=== PATIENT | male | born 1990 | race Caucasian/White ===

== ENCOUNTER 2016-06-28 03:48 | Inpatient (IN) | payer OTHER ==
--- NOTE | ~2016-06-28 | PN ---
Unit #: [id number] #: [id number] Patient: JASVIR EDWARD [id number] [facility] [address] [place] [address] [id number] I MR#: [id number] NAME: JASVIR EDWARD ROOM: [facility] Age: 25 Sex: M Admission Date: 06/28/2016 : 1990 Attending Physician: Petar Bingham M.D. Admitting Physician: Petar Bingham M.D. Primary Care Physician: Jess Doctor Not In System [facility] PROGRESS NOTES DATE OF SERVICE 06/29/2016 DISCUSSION Mr. Jasvir Edward is a 25-year-old male. The patient interviewed, chart reviewed. Obtained information from nursing staff. The patient reports that he is still having problem with the anxiety and restlessness. The patient reported that he was taking a high dosage of Neurontin at home. The patient still having problem with the anxiety, nervousness, and mood lability. The patient isolative, guarded, flat affect. Complete Review of Systems: Unremarkable. MENTAL STATUS EXAMINATION General Appearance: The patient dressed casually. Attention span, concentration: Fair. Oriented in place and person. Mood and affect: Sad, dysphoric. Speech: Monotone. Thought process: Collins. The patient denied any thoughts of harming self or others or any psychotic symptom, but having above-mentioned symptom. DIAGNOSES 1. Mood disorder not otherwise specified. 2. Amphetamine use disorder, severe. 3. Opioid use disorder, severe. ASSESSMENT/PLAN Advised to continue with current medication and therapeutic protocol. Advised Neurontin 300 mg 4 times a day and discontinue p.r.n. Neurontin. If needed, consider further adjustment of medication. Dictated by... Shiana Rivera/lima TD: 07/01/2016 07:07 JOB #: [id number] Unit #: [id number] #: [id number] Patient: JASVIR EDWARD PROGRESS NOTES Page 1 of 1 X Petar Bingham MD PROGRESS NOTE
--- NOTE | ~2016-06-28 | DS ---
Unit #: [id number] #: [id number] Patient: GUEVARA EDWARD [id number] [facility] [address] [place] [address] [id number] I MR#: [id number] NAME: GUEVARA EDWARD ROOM: [facility] Age: 25 Sex: M Admission Date: 06/28/2016 : 1990 Discharge Date: 07/01/2016 Attending Physician: Petar Bingham M.D. DISCHARGE SUMMARY REASON FOR ADMISISON Depression. DIAGNOSTIC STUDIES LABORATORY RESULTS: Urine drug screen positive for amphetamine and marijuana. HOSPITAL COURSE The patient was admitted to inpatient unit on 06/28/2016 and discharged on 07/01/2016. The patient was treated on the inpatient unit with group therapy, individual therapy, medication management, chemical dependency group, and expressive therapy. The patient responded well with the above modalities of treatment. Subsequently, the patient was discharged with a plan to follow up in outpatient program. DISCHARGE MEDICATIONS Seroquel 200 mg at bedtime for mood stabilization. I advised to discontinue Neurontin. DISCHARGE DIAGNOSES Psychiatric: 1. Amphetamine use disorder, severe, F15.20. 2. Opioid use disorder, severe, F11.20. 3. Mood disorder, not otherwise specified, F32.9. Secondary diagnosis: Deferred. Medical diagnosis: None. Stressors: Psychosocial stressors. DISCHARGE INSTRUCTIONS The patient is to follow up in outpatient clinic as per director social. CONDITION ON DISCHARGE The patient was pleasant and cooperative. Denied any psychotic symptom or any suicidal ideation. PROGNOSIS Guarded. DIET AND ACTIVITY As tolerated. Unit #: [id number] #: [id number] Patient: GUEVARA EDWARD Dictated by... Shaina Rivera/arely TD: 07/02/2016 21:19 JOB #: [id number] DISCHARGE SUMMARY Page 1 of 1 X Petar Bingham MD DISCHARGE SUMMARY
--- NOTE | ~2016-06-28 | HP ---
Unit #: [id number] #: [id number] Patient: JASVIR EDWARD [id number] [facility] [address] [place] [address] [id number] I MR#: [id number] NAME: JASVIR EDWARD ROOM: 83 Age: 25 Sex: M Admission Date: 06/28/2016 : 1990 Attending Physician: Petar Bingham M.D. Admitting Physician: Petar Bingham M.D. Primary Care Physician: Jess Doctor Not In System HISTORY AND PHYSICAL HISTORY OF PRESENT ILLNESS Jasvir is a 25 year old admitted to [facility] because of his poly illicit substance abuse. PAST MEDICAL HISTORY 1. Long history of polysubstance abuse to include IV meth, Suboxone and spice. 2. History of withdrawal seizures. PAST SURGICAL HISTORY Nothing reported ALLERGIES No known drug allergies. SOCIAL HISTORY Smokes two packs per day. Denies alcohol and admits to a long history of illicit substance abuse to include IV methamphetamine. FAMILY HISTORY Medically noncontributory. REVIEW OF SYSTEMS CONSTITUTIONAL: No fever or chills. HEENT: Denies any sore throat, ear pain or runny nose. CARDIOVASCULAR: Denies chest pain, irregular heart rhythm or palpitations. CHEST: Denies shortness of breath or cough. No hemoptysis. GASTROINTESTINAL: Denies nausea, vomiting, diarrhea or chronic constipation. ENDOCRINE: Denies history of increased thirst or urination. No recent significant weight loss or gain. GENITOURINARY: Denies dysuria, frequency, or hematuria. SKIN: Denies any rashes. HEMATOLOGIC: Denies history of increased bleeding or bruising. MUSCULOSKELETAL: Denies any hot, swollen joints. No generalized muscle pain. NEUROLOGIC: Denies problems with vision or speech. No frequent, severe headaches. No numbness, tingling or weakness in any extremities. Denies loss of bladder or bowel control. CURRENT MEDICATIONS 1. Detox protocol Unit #: [id number] #: [id number] Patient: JASVIR EDWARD 2. Seroquel 200 mg q.h.s. PHYSICAL EXAMINATION GENERAL: Alert, well-nourished, in no apparent distress. VITAL SIGNS: Blood pressure 116/72, heart rate 88, respirations 16, temperature 98.6. WEIGHT: 168 pounds. HEIGHT: 5'11". SKIN: Warm and dry without rash or lesion. HEENT: Normocephalic. TMs not viewed. Oral and nasal passages clear. Conjunctivae clear. Pupils equal, round and reactive to light and accommodation. Extraocular movements intact. NECK: Supple without lymphadenopathy or thyromegaly. HEART: Regular rate and rhythm without murmur. LUNGS: Clear. ABDOMEN: Soft, nontender. : Not done. EXTREMITIES: No evidence of cyanosis, clubbing or edema. Moves all extremities without focal deficit. NEUROLOGICAL: Grossly within normal limits. Cranial Nerves: II: Visual ko are intact. III, IV AND : Extraocular movements are intact. Pupils are equal, round and reactive to light. V: Facial sensation is grossly normal. VII: Facial movements and expression are normal. VIII: Auditory acuity grossly intact. IX, X: Uvula is midline. Phonation is normal. XI: Patient shrugs shoulders and turns head normally. XII: Tongue protrudes in the midline. Sensory and Motor Function: Sensory and motor sensation is grossly normal. Motor: moves all extremities well. Coordination: Gait is normal. Deep Tendon Reflexes: Intact. IMPRESSION Psychiatric admission RECOMMENDATIONS PSYCHIATRIC: Per psychiatrist. MEDICAL: I see no contraindications to participating in facility's activities. MEDICAL PROGNOSIS Good. MEDICAL CONDITION Stable. Dictated by... Mamie CelesteAKymberly-Iron. for Shaina Valerio/vinita TD: 06/28/2016 23:36 JOB #: [id number] Unit #: [id number] #: [id number] Patient: JASVIR EDWARD HISTORY AND PHYSICAL Page 1 of 1 X Priya Ohara PA X HISTORY AND PHYSICAL
--- NOTE | ~2016-06-28 | PN ---
Unit #: [id number] #: [id number] Patient: GUEVARA EDWARD [id number] [facility] [address] [place] [address] [id number] I MR#: [id number] NAME: GUEVARA EDWARD ROOM: 83 Age: 25 Sex: M Admission Date: 06/28/2016 : 1990 Attending Physician: Petar Bingham M.D. Admitting Physician: Shaina Rivera NOTES This patient has been quiet and keeping to himself. He has not been threatening, but he is calculating and watching everything that is going on. He admits he was threatening to shoot himself and harm others. He said that is still on his mind. He really cannot piece together why he is so angry. There may be something very important to know about this boy that has not been revealed yet. We will continue to assess him. His Lamictal was increased to 15, 25. He is also on Intuniv 1 mg a day and Strattera 40 mg a day. We will continue to work with him and his family. Dictated by... Rafiq Jorgensen M.D. SHAHNAZ/arely TD: 06/29/2016 02:23 JOB #: [id number] [facility] NOTES Page 1 of 1 X Rafiq Jorgensen MD X PROGRESS NOTE
--- NOTE | ~2016-06-28 | PN ---
Unit #: [id number] #: [id number] Patient: JASVIR EDWARD [id number] [facility] [address] [place] [address] [id number] MR#: [id number] NAME: JASVIR EDWARD ROOM: [facility] Age: 25 Sex: M Admission Date: 06/28/2016 : 1990 Attending Physician: Petar Bingham M.D. Admitting Physician: Petar Bingham M.D. Primary Care Physician: Generic Doctor Not In System [facility] PROGRESS NOTES DATE 06/30/2016 DISCUSSION Jasvir is a 25-year-old male seen on 06/30/2016. Patient interviewed. Chart reviewed. Obtained information from nursing staff. Patient was able to maintain safe behavior. Compliant, cooperative. Mood sad, dysphoric, flat affect, guarded. Complete review of system unremarkable. MENTAL STATUS EXAMINATION General appearance, patient dressed casually. Attention span, concentration fair. Oriented in place and person. Mood and affect sad, dysphoric. Speech monotone. Thought process goal-directed. Patient denied any thoughts of harming self or others but guarded. Recent and remote memory poor. Insight and judgement poor. DIAGNOSIS Mood disorder NOS. ASSESSMENT/PLAN Advised to continue with current medication and therapeutic protocol. Will monitor response to medication and make further adjustment of medication if needed. Dictated by... Shaina Rivera/ector TD: 07/01/2016 17:42 JOB #: [id number] Unit #: [id number] #: [id number] Patient: JASVIR EDWARD PROGRESS NOTES Page 1 of 1 X Petar Bingham MD PROGRESS NOTE
--- NOTE | ~2016-06-28 | PA ---
Unit #: [id number] #: [id number] Patient: GUEVARA EDWARD [id number] [facility] [address] [place] [address] [id number] I MR#: [id number] NAME: GUEVARA EDWARD ROOM: [facility] Age: 25 Sex: M Admission Date: 06/28/2016 : 1990 Date of Assessment: Attending Physician: Petar Bingham M.D. Admitting Physician: Petar Bingham M.D. Primary Care Physician: Generic Doctor Not In System PSYCHIATRIC ASSESSMENT INFORMANTS The patient reliability, fair informant and chart reliability, good. CHIEF COMPLAINT Amphetamine abuse and opioid abuse. HISTORY OF PRESENT ILLNESS Mr. Tay is a 25-year-old male, seen on with the above-mentioned complaint. The patient has a history of previous inpatient treatment at [facility]. The patient presented with using 2 g of IV meth daily. The patient reported using 8 g of Suboxone daily, last use yesterday. The patient reports one-fourth of spice daily. Reports withdrawal symptoms, cold, hot sweats, runny nose, muscle cramps, and restlessness. Denied any suicidal or homicidal ideation. Denied any psychotic symptom at this time. The patient reported tobacco use, age of onset 6; marijuana, age of onset 24; opioid, age of onset 23; and amphetamine, age of onset 17. The patient reported history of IV drug use and history of withdrawal symptoms. No history of any HIV, hepatitis, or any blackouts. Currently, reporting abdominal cramping, muscle cramping, and restlessness. PAST PSYCHIATRIC HISTORY Remarkable for history of outpatient treatment as mentioned above. FAMILY HISTORY AND SOCIAL HISTORY The patient has poor support system. No history of any abuse. MEDICAL HISTORY Unremarkable for any chronic medical illness. Musculoskeletal; muscle strength and tone, no atrophy or abnormal movement. Gait normal. MEDICATION HISTORY None. ALLERGIES No known drug allergies. SUBSTANCE ABUSE HISTORY Please see above. REVIEW OF SYSTEMS HEENT: Eyes, clear. Ears, nose, mouth, and throat; clear. CARDIOVASCULAR: Unremarkable. RESPIRATORY: Unremarkable. Unit #: [id number] #: [id number] Patient: GUEVARA EDWARD GI: Unremarkable. : Unremarkable. SKIN: Unremarkable. LYMPH NODE: Unremarkable. NEUROLOGIC: Unremarkable. ENDOCRINE: Unremarkable. HEMATOLOGIC: Unremarkable. ALLERGIC/IMMUNOLOGIC: Unremarkable. MUSCULOSKELETAL: Muscle strength and tone, no atrophy or abnormal movement. Gait normal. MENTAL STATUS EXAMINATION CONSTITUTIONAL: Measurement of vital signs; temperature 98.4, heart rate 88, respiratory rate 22, and blood pressure 116/73. Height 5 feet 11 inches and weight 168 pounds. GENERAL APPEARANCE: The patient's hygiene and grooming, fair. The patient did not show any facial deformity. MUSCULOSKELETAL: Please see above. PSYCHIATRIC EXAMINATION Description of speech; regular rate, normal volume, normal articulation, coherent, and spontaneous. Description of thought process, goal directed. Description of association, intact. Description of abnormal psychotic thinking; the patient denied any hallucinations or delusions, but mood lability and substance abuse. Description of the patient's judgment: Concerning everyday activity, poor. Social situation, poor. Concerning psychiatric condition, poor. Complete mental status examination; oriented in time, place, and person. Recent and remote memory, fair. Attention span and concentration, fair. Language, able to name object and repeat phrases. Fund of knowledge, aware of current event and passive vocabulary intact. Mood and affect, sad and dysphoric. Insight and judgment, fair to poor. ASSETS AND LIABILITIES Assets, the patient is articulate and able to take care of his ADL. Liability, history of substance abuse and depression. ADMITTING DIAGNOSES Psychiatric: Amphetamine use disorder, severe, F15.20; opioid use disorder, severe, F11.20; and mood disorder, not otherwise specified, F32.9. Secondary diagnosis: Deferred. Medical diagnosis: None. Stressors: Psychosocial stressors. PSYCHIATRIC PLAN AND TREATMENT GOAL AND DISCHARGE PLAN 1. Advised to admit the patient on the inpatient unit. Provide safe, supportive, and structured environment. 2. Ordered labs; CBC, CMP, UA, and UDS. 3. Precaution for self-harm, detox monitoring, and detox protocol. 4. The patient to attend all the programing, group therapy, individual therapy, and medication management. TREATMENT GOAL Unit #: [id number] #: [id number] Patient: GUEVARA EDWARD To attain euthymic mood, gain insight into his problem, and learn coping skills. DISCHARGE PLAN Plan to stabilize the patient and consider followup in outpatient program. ESTIMATED LENGTH OF STAY 3 to 5 days. Dictated by... Petar Bingham M.D. RENY/arely TD: 06/28/2016 17:04 JOB #: [id number] PSYCHIATRIC ASSESSMENT Page 1 of 1 X Petar Bingham MD PSYCHIATRIC ASSESSMENT
[2016-06-29 09:32] LABS: URINE APPEARANCE CLEAR; URINE BILIRUBIN NEG (NEG); URINE BLOOD NEG (NEG); URINE COLOR YELLOW; URINE GLUCOSE NEG (NEG); URINE KETONE NEG (NEG); URINE LEUKOCYTE ESTERASE NEG (NEG); URINE NITRATE NEG (NEG); URINE PH 6.5 (5-8); URINE PROTEIN NEG (NEG); URINE SPECIFIC GRAVITY 1.026 (1.003-1.035)
[2016-06-29 10:02] LABS: AMPHETAMINE POS (NEG); BARBITURATES NEG (NEG); BENZODIAZEPINES NEG (NEG); COCAINE NEG (NEG); MARIJUANA POS (NEG); OPIATES NEG (NEG); TRICYCLIC ANTIDEPRESSANTS POS (NEG); U METHADONE NEG (NEG)
[2016-06-29 12:32] LABS: BASOPHIL# 0.1 X10e3 (0-0.3); BASOPHIL% 1.2 % (0-2.5); EOSINOPHIL# 0.2 X10e3 (0-0.7); EOSINOPHIL% 4.2 % (0.0-7.0); HEMATOCRIT 46.4 % (38.0-50.0); LYMPHOCYTE# 1.9 X10e3 (1.0-3.5); LYMPHOCYTE% 35.3 % (17.0-45.0); MEAN CELL VOLUME 93.6 FL (83-96); MEAN CORPUSCULAR HEMOGLOBIN 30.2 PG (28-34); MEAN CORPUSCULAR HGB CONC 32.3 g/dL (30-36); MEAN PLATELET VOLUME 10.4 FL (6.5-11.5); MONOCYTE# 0.5 X10e3 (0-1.0); MONOCYTE% 8.9 % (3.0-12.0); NEUTROPHIL# 2.7 X10e3 (1.5-7.1); NEUTROPHIL% 50.4 % (40-75); PLATELET COUNT 207 X10e3 (140-420); RED BLOOD COUNT 4.95 X10e (3.90-5.60); RED CELL DISTRIBUTION WIDTH 13.4 % (11.0-15.5); WHITE BLOOD COUNT 5.3 X10e3 (4.0-10.5)
[2016-06-29 12:46] LABS: DIFF IND NO
[2016-06-29 12:53] LABS: THYROID STIMULATING HORMONE 0.34 uIU/ml (0.34-5.60)
[2016-06-29 13:02] LABS: FREE THYROXIN (T4) 0.97 ng/dL (0.58-1.64)
[2016-06-29 13:13] LABS: ALBUMIN SERUM 3.9 g/dL (3.5-5.0); BILIRUBIN,TOTAL 0.6 mg/dL (0.2-2.0); CALCIUM SERUM 9.4 mg/dL (8.4-10.2); GLOM FILT RATE Estimated 102.7 mL/min (>60); POTASSIUM 4.6 mmol/L (3.5-5.1); PROTEIN TOTAL SERUM 6.8 g/dL (6.0-8.3)
== END 2016-07-01 09:33 | DRG 885 ==
LOC: P1E 03:48
PROVIDERS: Psychiatry & Neurology Psychiatry
PROC: HZ2ZZZZ Detoxification Services for Substance Abuse Treatment (ICD-10-PCS; principal; 2016-06-28)
DX: F39 Unspecified mood [affective] disorder (principal); F11.20 Opioid dependence, uncomplicated; F15.20 Other stimulant dependence, uncomplicated; F17.210 Nicotine dependence, cigarettes, uncomplicated
CPT/HCPCS: 80053; 80307; 81003; 84439; 84443; 85025; 86592

== ENCOUNTER 2016-09-11 20:00 | Inpatient (IN) | payer OTHER ==
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
--- NOTE | ~2016-09-11 | PN ---
Unit #: [id number] #: [id number] Patient: GUEVARA EDWARD [id number] [facility] [address] [place] [address] [id number] MR#: [id number] NAME: GUEVARA EDWARD ROOM: P212 Age: 26 Sex: M Admission Date: 09/11/2016 : 1990 Attending Physician: Petar Bingham M.D. Admitting Physician: Petar Bingham M.D. Primary Care Physician: Generic Doctor Not In System [facility] PROGRESS NOTES DATE 09/12/2016 DISCUSSION Mr. Tay is a 26-year-old male, seen on 09/12/2016. The patient interviewed, chart reviewed, and obtained information from the nursing staff. The patient was compliant and cooperative. Mood sad and dysphoric, flat affect, and guarded. The patient's vital signs, 98.0, 91, 158/100. Height is 6 feet. Weight 168 pounds. REVIEW OF SYSTEMS Complete review of systems unremarkable. MENTAL STATUS EXAMINATION General appearance: Patient dressed casually. Attention span and concentration, fair. Oriented in place and person. Mood and affect, sad and dysphoric. Speech, monotone. Thought process, concrete. The patient denied any thoughts of harming self or others or any psychotic symptoms. Recent and remote memory, poor. Insight and judgment, poor. DIAGNOSES 1. Opiate use disorder, severe, F11.20. 2. Mood disorder, NOS, F32.9. 3. Amphetamine use disorder, moderate, F15.2. ASSESSMENT/PLAN Advised to continue with the detox protocol, detox monitoring, and ordered Ensure three times a day and larger portions as requested by patient. Dictated by... Shaina Rivera/mae TD: 09/14/2016 09:03 JOB #: [id number] Unit #: [id number] #: [id number] Patient: GUEVARA EDWARD PROGRESS NOTES Page 1 of 1 X Petar Bingham MD PROGRESS NOTE
--- NOTE | ~2016-09-11 | PA ---
Unit #: [id number] #: [id number] Patient: JASVIR EDWARD [id number] [facility] [address] [place] [address] [id number] MR#: [id number] NAME: JASVIR EDWARD ROOM: P212 Age: 26 Sex: M Admission Date: 09/11/2016 : 1990 Date of Assessment: 09/12/2016 Attending Physician: Petar Bingham M.D. Admitting Physician: Petar Bingham M.D. Primary Care Physician: Generic Doctor Not In System PSYCHIATRIC ASSESSMENT INFORMANTS The patient reliability, fair informant and chart reliability, good. CHIEF COMPLAINT Methamphetamine abuse and heroin abuse. HISTORY OF PRESENT ILLNESS Jasvir Edward is a 26-year-old male, presented with the above-mentioned complaint. The patient reported 2 to 3 g of heroin IV. The patient reports that he was drug free 4 months ago, using daily in the past month. The patient reported yesterday was his birthday and he used half a gram of IV heroin and meth. The patient reported he overdosed and was given Narcan. The patient reported withdrawal seizures and last seizure was on last admission. Denied any current suicidal or homicidal ideation. Needing detox. Denied any psychotic symptoms. The patient reported long history of substance abuse. Tobacco, age of onset 7; opioid, age of onset 16; and amphetamine, age of onset 8. The patient reported longest period of sobriety 4 months, last period of sobriety in 03/2016. The patient reported history of blackout; IV drug abuse; hepatitis; and withdrawal symptoms such as restlessness, muscle cramping, abdominal cramping, and withdrawal seizure. The patient needing inpatient admission at this time for psychiatric stabilization. PAST PSYCHIATRIC HISTORY Remarkable for history of previous treatment at [facility] and detoxed in the past. FAMILY HISTORY AND SOCIAL HISTORY The patient has a poor support system. No history of abuse. No legal problem. MEDICAL HISTORY Remarkable for history of hepatitis C. Musculoskeletal; muscle strength and tone, no atrophy or abnormal movement. Gait normal. MEDICATION HISTORY None. ALLERGIES No known drug allergies. SUBSTANCE ABUSE HISTORY Please see above. Unit #: [id number] #: [id number] Patient: JASVIR EDWARD REVIEW OF SYSTEMS HEENT: Eyes, clear. Ears, nose, mouth, and throat; clear. CARDIOVASCULAR: Unremarkable. RESPIRATORY: Unremarkable. GI: Unremarkable. : Unremarkable. SKIN: Unremarkable. LYMPH NODE: Unremarkable. NEUROLOGIC: Unremarkable. ENDOCRINE: Unremarkable. HEMATOLOGIC: Unremarkable. ALLERGIC/IMMUNOLOGIC: Unremarkable. MUSCULOSKELETAL: Muscle strength and tone, no atrophy or abnormal movement. Gait normal. MENTAL STATUS EXAMINATION CONSTITUTIONAL: Measurement of vital signs; temperature 99.0, heart rate 72, oxygen saturation 100%, respirations 18, and blood pressure 147/76. Height 6 feet and weight 182 pounds. GENERAL APPEARANCE: The patient dressed casually. The patient did not show any facial deformity. MUSCULOSKELETAL: Please see above. PSYCHIATRIC EXAMINATION Description of speech, regular rate and normal volume. Description of thought process, goal directed. Description of association, intact. Description of abnormal psychotic thinking; the patient denied any hallucinations or delusions, but sad and depressed mood. Description of the patient's judgment: Concerning everyday activity, poor. Social situation, poor. Concerning psychiatric condition, poor. The patient denied any suicidal or homicidal ideation. Complete mental status examination; oriented in time, place, and person. Recent and remote memory, fair. Attention span and concentration, fair. Language, able to name object and repeat phrases. Fund of knowledge, aware of current event and passive vocabulary intact. Mood and affect, sad and dysphoric. Insight and judgment, fair to poor. ASSETS AND LIABILITIES Assets, the patient is articulate and able to take care of his ADL. Liability, history of substance abuse and depression. ADMITTING DIAGNOSES Psychiatric: Opioid use disorder, severe, F11.20; amphetamine use disorder, severe, F15.20; and mood disorder, not otherwise specified, F32.9. Secondary diagnosis: Deferred. Medical diagnosis: History of hepatitis C and history of withdrawal seizures. Stressors: Psychosocial stressors. PSYCHIATRIC PLAN AND TREATMENT GOAL AND DISCHARGE PLAN 1. Advised to admit the patient on the inpatient unit. Provide safe, supportive, and structured environment. Unit #: [id number] #: [id number] Patient: JASVIR EDWARD 2. Ordered labs; CBC, CMP, UA, and UDS. 3. Detox protocol and detox monitoring. 4. Seizure precautions and Diastat p.r.n. for seizure more than 2 minutes. The patient to attend all the programing, group therapy, individual therapy, and chemical dependency group. TREATMENT GOAL To attain euthymic mood, gain insight into his problem, and learn coping skills. DISCHARGE PLAN Plan to stabilize the patient and consider followup in outpatient program. ESTIMATED LENGTH OF STAY 5 to 10 days. Dictated by... Shaina Rivera/arely TD: 09/12/2016 15:03 JOB #: [id number] PSYCHIATRIC ASSESSMENT Page 1 of 1 X Petar Bingham MD X PSYCHIATRIC ASSESSMENT
--- NOTE | ~2016-09-11 | PN ---
Unit #: [id number] #: [id number] Patient: GUEVARA EDWARD [id number] [facility] [address] [place] [address] [id number] MR#: [id number] NAME: GUEVARA EDWARD ROOM: P212 Age: 26 Sex: M Admission Date: 09/11/2016 : 1990 Attending Physician: Petar Bingham M.D. Admitting Physician: Petar Bingham M.D. Primary Care Physician: Generic Doctor Not In System [facility] PROGRESS NOTES DATE OF SERVICE: 09/13/2016 DISCUSSION Mr. Barrow is a 26-year-old male, seen on 09/13/2016. The patient interviewed, chart reviewed, and obtained information from nursing staff. The patient was compliant and cooperative. Mood is sad and dysphoric. Flat, affect and guarded. The patient still having problem with the anxiety, agitation, currently on 72-hour hold. Vital signs, stable. Temperature 98.5, pulse 55, blood pressure 126/51. Complete review of systems unremarkable. MENTAL STATUS EXAMINATION General appearance, the patient dressed casually. Attention span and concentration, fair. Oriented in time, place, and person. Mood and affect, labile. Speech, monotone. Thought process, concrete. The patient denied any thoughts of harming self or others, but guarded. Recent and remote memory, poor. Insight and judgment, poor. DIAGNOSIS Mood disorder, not otherwise specified; polysubstance abuse. ASSESSMENT AND PLAN Advised to continue with current medication and therapeutic protocol. If needed, consider further adjustment of medication. Dictated by... Shaina Rivera/arely TD: 09/14/2016 18:30 JOB #: [id number] Unit #: [id number] #: [id number] Patient: GUEVARA EDWARD [facility] PROGRESS NOTES Page 1 of 1 X Petar Bingham MD PROGRESS NOTE
--- NOTE | ~2016-09-11 | DS ---
Unit #: [id number] #: [id number] Patient: GUEVARA EDWARD [id number] [facility] [address] [place] [address] [id number] MR#: [id number] NAME: GUEVARA EDWARD ROOM: [facility] Age: 26 Sex: M Admission Date: 09/11/2016 : 1990 Discharge Date: 09/14/2016 Attending Physician: Petar Bingham M.D. Primary Care Physician: Generic Doctor Not In System DISCHARGE SUMMARY REASON FOR ADMISSION Opioid detox. DIAGNOSTIC STUDIES LABORATORY RESULTS: Urine drug screen positive for marijuana and amphetamine. HOSPITAL COURSE The patient was admitted to inpatient unit on 09/11/2016 and discharged on 09/14/2016. The patient was treated with detox protocol, chemical dependency group, expressive therapy, medication management, psychotherapy, psychoeducation. The patient was responsive to treatment. Subsequently, the patient was discharged with a plan to follow up in outpatient program. DISCHARGE MEDICATIONS None. DISCHARGE DIAGNOSES Psychiatric: Opioid use disorder, severe, F11.20; amphetamine use disorder, severe, F15.20; mood disorder, not otherwise specified, F32.9. Secondary diagnosis: Deferred. Medical diagnosis: History of hepatitis C, withdrawal seizure. Stressors: Psychosocial stressors. DISCHARGE INSTRUCTIONS The patient to follow up in outpatient clinic as per clinical social worker. CONDITION ON DISCHARGE The patient was pleasant and cooperative. Denied any psychotic symptom or any suicidal ideation. PROGNOSIS Guarded. DIET AND ACTIVITY As tolerated. Dictated by... Unit #: [id number] #: [id number] Patient: GUEVARA EDWARD Shaina Rivera/arely TD: 09/15/2016 19:20 JOB #: [id number] DISCHARGE SUMMARY Page 1 of 1 X Petar Bingham MD X DISCHARGE SUMMARY
[2016-09-13 12:59] LABS: URINE APPEARANCE TURBID; URINE BILIRUBIN NEG (NEG); URINE BLOOD NEG (NEG); URINE COLOR DK YELLOW; URINE GLUCOSE NEG (NEG); URINE KETONE NEG (NEG); URINE LEUKOCYTE ESTERASE NEG (NEG); URINE NITRATE NEG (NEG); URINE PROTEIN NEG (NEG); URINE SPECIFIC GRAVITY 1.029 (1.003-1.035)
[2016-09-13 13:33] LABS: AMPHETAMINE POS (NEG); BARBITURATES NEG (NEG); BENZODIAZEPINES NEG (NEG); COCAINE NEG (NEG); MARIJUANA POS (NEG); OPIATES NEG (NEG); TRICYCLIC ANTIDEPRESSANTS NEG (NEG); U METHADONE NEG (NEG)
== END 2016-09-14 09:17 | disposition home or self-care (01) | DRG 897 ==
LOC: P2S 23:04
PROVIDERS: Psychiatry & Neurology Psychiatry
PROC: HZ2ZZZZ Detoxification Services for Substance Abuse Treatment (ICD-10-PCS; principal; 2016-09-11)
DX: F11.20 Opioid dependence, uncomplicated (principal); F15.20 Other stimulant dependence, uncomplicated; F39 Unspecified mood [affective] disorder; F17.210 Nicotine dependence, cigarettes, uncomplicated
CPT/HCPCS: 80307; 81003